=== PATIENT | female | born 1980 | race Caucasian/White ===

== ENCOUNTER 2018-01-16 06:07 | Emergency (ER) | payer OTHER ==
[~2018-01-16] VITALS: Ht 162.6 cm; Wt 67.3 kg
[~2018-01-16 06:07] MED LIST: NO HOME MEDS
[2018-01-16] MEDS ORDERED: ibuprofen tablet 400 MG TABLET PO ONE (06:15)
[2018-01-16 07:19] VITALS: BP 137/89
== END 2018-01-16 07:21 | disposition home or self-care (01) ==
LOC: ER 06:07
DX: S60.812A Abrasion of left wrist, initial encounter (principal); Z90.89 Acquired absence of other organs; V87.7XXA Person injured in collision between other specified motor vehicles (traffic), initial encounter; Y93.89 Activity, other specified; Y92.89 Other specified places as the place of occurrence of the external cause; Y99.8 Other external cause status
CPT/HCPCS: 73110; 99284

== ENCOUNTER 2018-06-04 10:38 | Outpatient (CLI) | payer OTHER | END 2018-06-04 23:59 | disposition home or self-care (01) | LOC: RAD 10:38 | PROVIDERS: ATTEND Pediatrics Sports Medicine | DX: M51.26 Other intervertebral disc displacement, lumbar region (principal); M48.061 Spinal stenosis, lumbar region without neurogenic claudication; M25.78 Osteophyte, vertebrae | CPT/HCPCS: 72148 ==